=== PATIENT | male | born 1990 | race Caucasian/White ===

== ENCOUNTER 2022-03-26 03:11 | Emergency (ER) | payer SELFPAY ==
[~2022-03-26] VITALS: Ht 177.8 cm; Wt 105.0 kg
[2022-03-26 03:31] VITALS: BP 110/55
[2022-03-26] MEDS ORDERED: TOPUD PO (08:59)
== END 2022-03-26 09:31 | disposition home or self-care (01) ==
LOC: ER 03:23
DX: R51.9 Headache, unspecified (principal); M54.2 Cervicalgia; V43.52XA Car driver injured in collision with other type car in traffic accident, initial encounter; Y93.89 Activity, other specified; Y92.9 Unspecified place or not applicable
CPT/HCPCS: 70450; 72125; 74176; 99284; Z7610